=== PATIENT | female | born 1990 | race Asian ===

== ENCOUNTER 2025-04-10 01:45 | Emergency (ER) | payer OTHER ==
[~2025-04-10] VITALS: Ht 167.6 cm; Wt 56.7 kg
[2025-04-10 02:35] LABS: APPEARANCE,URINE BLOODY (CLEAR)
[2025-04-10 02:46] LABS: SQUAMOUS EPITHELIAL CELL,UR Rare /HPF (None Seen)
[2025-04-10 03:10] LABS: PREGNANCY TEST URINE QUAL NEGATIVE (NEGATIVE)
[2025-04-10] MEDS ORDERED: KETOROLAC TROMETHAMINE INJ 30 MG/ML VIAL ONE (03:59)
[2025-04-10] MEDS ORDERED: PHENAZOPYRIDINE HCL 200 MG TABLET ONE (03:59)
[2025-04-10] MEDS: PHENAZOPYRIDINE HCL 200 MG TABLET PO ONE (04:08)
[2025-04-10] MEDS: KETOROLAC TROMETHAMINE INJ 30 MG/ML VIAL IM ONE (04:08)
[2025-04-10 04:39] LABS: PLATELET COUNT (AUTO) 249 K/uL (150-450); RED BLOOD CELL COUNT(AUTO) 4.14 MIL/uL (4.0-5.2); RED CELL DISTRIBUTION WIDTH 13.1 % (11.5-15.0); WHITE BLOOD COUNT (AUTO) 8.1 K/uL (4.3-11.0)
[2025-04-10 04:46] LABS: CALCIUM, SERUM 8.7 mg/dL (8.5-10.1); CREATININE 0.8 mg/dL (0.6-1.3); SODIUM SERUM 140.0 mmol/L (136-145); UREA NITROGEN, BLOOD 12.0 mg/dL (7-18)
[2025-04-10 04:52] LABS: ASPARTATE AMINOTRANSFERASE 16.0 U/L (15-37); TOTAL PROTEIN, SERUM 7.4 g/dL (6.4-8.2)
[2025-04-10] MEDS ORDERED: PHEN-705 PO (06:23)
[2025-04-10] MEDS ORDERED: LEVO500T90 PO (06:23)
[2025-04-10 06:34] VITALS: BP 119/84; TEMP 98.5; O2SAT 98
== END 2025-04-10 06:35 | disposition home or self-care (01) ==
LOC: ER 01:50
DX: N30.01 Acute cystitis with hematuria (principal); R10.9 Unspecified abdominal pain
CPT/HCPCS: 99285; 74176; 96372; 85025; 84703; 81001; 36415; 80053; J1885

== ENCOUNTER 2025-04-21 04:05 | Emergency (ER) | payer OTHER ==
[~2025-04-21] VITALS: Ht 167.6 cm; Wt 59.0 kg
[~2025-04-21 04:05] MED LIST: LEVO500T90 PO; PHEN-705 PO
[2025-04-21 05:33] LABS: PLATELET COUNT (AUTO) 232 K/uL (150-450); RED BLOOD CELL COUNT(AUTO) 4.16 MIL/uL (4.0-5.2); RED CELL DISTRIBUTION WIDTH 12.9 % (11.5-15.0); WHITE BLOOD COUNT (AUTO) 5.6 K/uL (4.3-11.0)
[2025-04-21 05:34] LABS: PREGNANCY TEST URINE QUAL NEGATIVE (NEGATIVE)
[2025-04-21 05:35] LABS: APPEARANCE,URINE TURBID (CLEAR); BLOOD, URINE 3+ Ery/uL (NEGATIVE); LEUKOCYTE ESTERASE ,URINE TRACE (NEGATIVE); NITRITE, URINE POSITIVE (NEGATIVE); UGLUCOSE 1+ mg/dL (NEGATIVE)
[2025-04-21 05:36] LABS: ADD URINE CULTURE YES; SQUAMOUS EPITHELIAL CELL,UR Rare /HPF (None Seen)
[2025-04-21 05:40] LABS: CALCIUM, SERUM 8.3 mg/dL (8.5-10.1); CREATININE 0.8 mg/dL (0.6-1.3); SODIUM SERUM 139 mmol/L (136-145); UREA NITROGEN, BLOOD 10 mg/dL (7-18)
[2025-04-21] MEDS ORDERED: CEPH-570 PO (05:41)
[2025-04-21] MEDS ORDERED: CEPHALEXIN MONOHYDRATE 500 MG CAPSULE PO ONE (05:43)
[2025-04-21 05:46] LABS: ASPARTATE AMINOTRANSFERASE 17 U/L (15-37); TOTAL PROTEIN, SERUM 6.5 g/dL (6.4-8.2)
[2025-04-21] MEDS: CEPHALEXIN MONOHYDRATE 500 MG CAPSULE PO ONE (05:47)
[2025-04-21] MEDS: FOSFOMYCIN TROMETHAMINE 3 G/PKT PACKET PO ONE (06:00)
[2025-04-21 07:16] VITALS: BP 124/78; TEMP 97.9; O2SAT 98
== END 2025-04-21 07:17 | disposition home or self-care (01) ==
LOC: ER 04:16
DX: N39.0 Urinary tract infection, site not specified (principal); R31.9 Hematuria, unspecified; R42 Dizziness and giddiness; Z79.899 Other long term (current) drug therapy
CPT/HCPCS: 36415; 80053-TC; 81001; 83735-TC; 84703-TC; 85025-TC; 86140-TC; 87086-TC; 87186-TC